=== PATIENT | female | born 1935 | race Caucasian/White ===

== ENCOUNTER → 2017-03-23 | Outpatient (CLI) | payer MEDICARE, OTHER ==
[2015-02-18 16:24] VITALS: BP 148/108
[~2017-03-23] MED LIST: ACET1TAB30 PO; AMLO5TAB4 PO; AMOX500C PO; APIX2.5T PO; ASPI-630 PO; CHOL2000 PO; LEVO75TA PO; MAGN400C PO; METO25TA4 PO; NAPR220C4 PO
[2017-03-23 07:09] LABS: CALCIUM 8.6 mg/dL (8.5-10.1); CREATININE 0.8 mg/dL (0.6-1.0); GFR 68.3; POTASSIUM 3.9 mmol/L (3.5-5.1)
[2017-03-23 07:13] LABS: BASO # 0.1 x10^3/uL (0.0-0.2); BASO % 1 % (0-3); EOS # 0.2 x10^3/uL (0.0-0.7); EOS % 3 % (0-3); HEMATOCRIT 43.8 % (36.0-47.0); HEMOGLOBIN 14.9 g/dL (12.0-15.5); LYMPH # 1.7 x10^3/uL (1.0-4.8); LYMPH % 26 % (24-48); MEAN CORPUSCULAR HEMOGLOBIN 31 pg (25-35); MEAN CORPUSCULAR HGB CONC 34 g/dL (31-37); MEAN CORPUSCULAR VOLUME 90 fL (79-100); MONO # 0.5 x10^3/uL (0.0-1.1); MONO % 8 % (0-9); NEUT % 63 % (31-73); PLATELET COUNT 240 x10^3/uL (140-400); RED BLOOD COUNT 4.89 x10^6/uL (3.50-5.40); RED CELL DISTRIBUTION WIDTH 14.1 % (11.5-14.5); WHITE BLOOD COUNT 6.4 x10^3/uL (4.0-11.0)
== END | disposition home or self-care (01) ==
LOC: SPEC 06:43
PROVIDERS: ATTEND Internal Medicine Cardiovascular Disease
DX: I48.0 Paroxysmal atrial fibrillation (principal); Z87.891 Personal history of nicotine dependence
CPT/HCPCS: 36415; 80048; 84443; 85025

== ENCOUNTER → 2017-03-23 | Outpatient (CLI) | payer MEDICARE, OTHER ==
[2015-02-18 16:24] VITALS: BP 148/108
--- NOTE | 2017-03-23 16:09 | CARD ---
APPROVED REPORT EXAM: Two-dimensional and M-mode echocardiogram with Doppler and color Doppler. Other Information Quality : Average Rhythm : Atrial Fibrillation INDICATION Atrial Fibrillation 2D DIMENSIONS RVDd2.8 (2.9-3.5cm)Left Atrium(2D)3.8 (1.6-4.0cm) IVSd1.0 (0.7-1.1cm)Aortic Root(2D)3.2 (2.0-3.7cm) LVDd3.7 (3.9-5.9cm)LVOT Diameter2.0 (1.8-2.4cm) PWd1.0 (0.7-1.1cm)LVDs2.8 (2.5-4.0cm) FS (%) 22.8 %SV26.6 ml LVEF(%)46.6 (>50%) Aortic Valve AoV Peak King.100.0cm/sAoV VTI18.4cm AO Peak GR.4.0mmHgAO Mean GR.2mmHg Mitral Valve MV E Snfrhxmj15.3cm/sMV E Peak Gr.3mmHg MV DECEL [id number] A Velocity2.8cm/s MV E Mean Gr.2mmHgMV FEB73hx E/A Ratio33.0MVA (PHT)4.84cm2 Tricuspid Valve TR P. Rlivbauz722wb/sRAP [id number] TR Peak Gr.53btOsJWQG51deEe LEFT VENTRICLE The left ventricle is normal size. There is normal left ventricular wall thickness. Left ventricle sy stolic function is low normal. EF 50% Septal motion consistent with conduction abnormality, otherwise grossly normal wall motion. Tissue Doppler imaging reveals moderate left ventricular diastolic dysfu nction. RIGHT VENTRICLE The right ventricle is normal size. The right ventricular systolic function is normal. ATRIA The left atrium is mildly dilated. The right atrium is moderately dilated. The interatrial septum is intact with no evidence for an atrial septal defect or patent foramen ovale as noted on 2-D or Dopple r imaging. AORTIC VALVE The aortic valve is mildly calcified. The aortic valve is trileaflet. Doppler and Color Flow revealed trace to mild aortic regurgitation. There is no significant aortic valvular stenosis. MITRAL VALVE The mitral valve is normal in structure. There is no mitral valve stenosis. Doppler and Color Flow re vealed mild mitral regurgitation. TRICUSPID VALVE The tricuspid valve is normal in structure. Doppler and Color Flow revealed moderate tricuspid regurg itation. The PA pressure was estimated at 43 mmHg. There is no tricuspid valve stenosis. PULMONIC VALVE The pulmonic valve is not well visualized. Doppler and Color Flow revealed no pulmonic valvular regur gitation. There is no pulmonic valvular stenosis. GREAT VESSELS The aortic root is normal in size. Pulmonary veins not recorded. The IVC collapses <50% with inspirat ion and is dilated in size consistent with elevated right sided filling pressures. PERICARDIAL EFFUSION There is no evidence of significant pericardial effusion. Critical Notification Critical Value: No <Conclusion> Left ventricle systolic function is low normal. EF 50% Septal motion consistent with conduction abnormality, otherwise grossly normal wall motion. Doppler and Color Flow revealed moderate tricuspid regurgitation. The PA pressure was estimated at 43 mmHg. The IVC collapses <50% with inspiration and is dilated in size consistent with elevated right sided f illing pressures.
== END | disposition home or self-care (01) ==
LOC: ECHO 12:58
PROVIDERS: ATTEND Internal Medicine Cardiovascular Disease
DX: I08.1 Rheumatic disorders of both mitral and tricuspid valves (principal); I70.0 Atherosclerosis of aorta; Z87.891 Personal history of nicotine dependence
CPT/HCPCS: 93306

== ENCOUNTER → 2017-04-28 | Outpatient (CLI) | payer MEDICARE, OTHER ==
[2015-02-18 16:24] VITALS: BP 148/108
== END | disposition home or self-care (01) ==
LOC: SPEC 09:36
PROVIDERS: ATTEND Specialist
DX: E03.9 Hypothyroidism, unspecified (principal); Z87.890 Personal history of sex reassignment; Z72.89 Other problems related to lifestyle
CPT/HCPCS: 84443

== ENCOUNTER → 2017-06-21 | Outpatient (CLI) | payer MEDICARE, OTHER ==
[2015-02-18 16:24] VITALS: BP 148/108
[2017-06-21 08:18] LABS: ALBUMIN 3.5 g/dL (3.4-5.0); ALBUMIN/GLOBULIN RATIO 1.2 (1.0-1.7); CALCIUM 8.8 mg/dL (8.5-10.1); CREATININE 0.8 mg/dL (0.6-1.0); GFR 68.3; TOTAL BILIRUBIN 0.7 mg/dL (0.2-1.0); TOTAL PROTEIN 6.4 g/dL (6.4-8.2)
[2017-06-21 14:27] LABS: THYROID STIM HORMONE (TSH) 1.26 uIU/mL (0.358-3.740)
== END | disposition home or self-care (01) ==
LOC: SPEC 07:25
PROVIDERS: ATTEND Specialist
DX: E03.9 Hypothyroidism, unspecified (principal); E63.9 Nutritional deficiency, unspecified; I10 Essential (primary) hypertension; Z87.891 Personal history of nicotine dependence
CPT/HCPCS: 36415; 80053; 80061; 84443

== ENCOUNTER → 2019-04-12 | Outpatient (CLI) | payer MEDICARE, OTHER ==
[2015-02-18 16:24] VITALS: BP 148/108
--- NOTE | 2019-04-12 14:58 | RAD ---
EXAM: Dual energy x-ray absorptiometry (DEXA). HISTORY: Postmenopausal female presents for osteoporosis screening. COMPARISON: 05/28/2016 and 01/03/2008. TECHNIQUE: Dual energy x-ray absorptiometry of the lumbar spine and right hip was performed. Calculation of bone mineral density based on standard deviations above or below the expected young adult normal value (T-score) was completed. FINDINGS: The average bone mineral density in the 1st through 4th lumbar vertebrae is 1.036 g/cmxcm, corresponding with a T-score of -1.2. There has been a 1.2% decrease in density of the lumbar spine compared to a study dated 01/03/2008. The average total bone mineral density in the right hip is 0.734 g/cmxcm, corresponding with a T-score of -1.8. There has been a 0.1% decrease in density of the left hip compared to a baseline study dated 01/03/2008. IMPRESSION: Osteopenia. Note: Definitions established by the World Health Organization: 1. Normal: T-score is -1.0 or above. 2. Osteopenia: T-score is between -1.0 and -2.5 . 3. Osteoporosis: T-score is -2.5 or below. Electronically signed by: Paola Barnes MD (04/12/2019 2:55 PM) [place] [id number]
== END | disposition home or self-care (01) ==
LOC: DXRAD 14:08
PROVIDERS: ATTEND Physician Assistant
DX: Z13.820 Encounter for screening for osteoporosis (principal); M85.88 Other specified disorders of bone density and structure, other site
CPT/HCPCS: 77080

== ENCOUNTER → 2020-09-03 | Outpatient (CLI) | payer MEDICARE, OTHER ==
[2015-02-18 16:24] VITALS: BP 148/108
--- NOTE | 2020-09-03 14:33 | CARD ---
MR#: [id number] Date of Study: 09/03/2020 Ordering Physician: RONDA ERAZO, Referring Physician: RONDA ERAZO, Tech: Kirti Rashid CHLOE APPROVED REPORT EXAM: Two-dimensional and M-mode echocardiogram with Doppler and color Doppler. Other Information Quality : Good Rhythm : Atrial Fibrillation INDICATION Hypertension/HCVD 2D DIMENSIONS RVDd3.6 (2.9-3.5cm)Left Atrium(2D)4.0 (1.6-4.0cm) IVSd0.7 (0.7-1.1cm)Aortic Root(2D)3.0 (2.0-3.7cm) LVDd3.3 (3.9-5.9cm)LVOT Diameter1.8 (1.8-2.4cm) PWd1.0 (0.7-1.1cm)LVDs1.5 (2.5-4.0cm) FS (%) 30.0 %SV39.3 ml LVEF(%)60.0 (>50%) Aortic Valve AoV Peak King.110.3cm/sAoV VTI16.6cm AO Peak GR.4.9mmHgLVOT Peak King.92.4cm/s LVOT VTI 15.63cmAO Mean GR.3mmHg PRIETO (VMAX)2.23eh5ZFV (VTI)2.52cm2 AI P 1/2 Drso037jk Tricuspid Valve TR P. Hlylrmmw918ai/sRAP VDNWTIRD1sdIf TR Peak Gr.04hlXsMRUC13ckXc LEFT VENTRICLE The left ventricle cavity is small. There is normal left ventricular wall thickness. The left ventric ular systolic function is normal. The Ejection Fraction is 55-60%. There is normal LV segmental wall motion. RIGHT VENTRICLE The right ventricle is mildly dilated. The right ventricular systolic function is normal. ATRIA The left atrium is mildly dilated. The right atrium is severely dilated. The interatrial septum is in tact with no evidence for an atrial septal defect or patent foramen ovale as noted on 2-D or Doppler imaging. AORTIC VALVE The aortic valve is calcified but opens well. Doppler and Color Flow revealed mild aortic regurgitati on. There is no significant aortic valvular stenosis. MITRAL VALVE The mitral valve is calcified but opens well. Mitral annular calcification is mild. There is no evide nce of mitral valve prolapse. There is no mitral valve stenosis. Doppler and Color-flow revealed mild mitral regurgitation. TRICUSPID VALVE The tricuspid valve is normal in structure and function. Doppler and Color Flow revealed mild tricusp id regurgitation. There is moderate pulmonary hypertension. The PA pressure was estimated at 47 mmHg. There is no tricuspid valve stenosis. PULMONIC VALVE The pulmonary valve is normal in structure and function. Doppler and Color Flow revealed mild to mode rate pulmonic valvular regurgitation. There is no pulmonic valvular stenosis. GREAT VESSELS The aortic root is normal in size. The ascending aorta is mildly dilated. The IVC is dilated and ammy apses >50% with inspiration. PERICARDIAL EFFUSION There is no evidence of significant pericardial effusion. Critical Notification Critical Value: No <Conclusion> The left ventricular systolic function is normal. The Ejection Fraction is 55-60%. There is normal LV segmental wall motion. Mild aortic regurgitation. Mild mitral regurgitation. Mild tricuspid regurgitation. The PA pressure was estimated at 47 mmHg. There is no evidence of significant pericardial effusion. Signed by : Rojelio Duran, Electronically Approved : 09/03/2020 14:32:44
== END ==
LOC: ECHO 13:06
PROVIDERS: ATTEND Internal Medicine Cardiovascular Disease
DX: I08.8 Other rheumatic multiple valve diseases (principal); I27.20 Pulmonary hypertension, unspecified; I10 Essential (primary) hypertension
CPT/HCPCS: 93306

== ENCOUNTER → 2021-03-13 | Outpatient (CLI) | payer MEDICARE, OTHER ==
[2015-02-18 16:24] VITALS: BP 148/108
--- NOTE | 2021-03-13 16:57 | RAD ---
Exam: US DPLX ARTR EXTREM LOWER BILAT History: Reason: PAD, NONPALPABLE PEDAL PULSES / Spl. Instructions: / History: Comparison: None. Technique: Grayscale, color, and spectral Doppler ultrasound images of the lower extremity arteries. Findings: There are no elevated peak systolic velocities. There are normal triphasic and biphasic wav eforms throughout both lower extremities. Impression: No significant peripheral arterial disease in the lower extremities. Electronically signed by: Elvira Bateman MD (03/13/2021 4:54 PM) [id number]
== END ==
LOC: US 11:01
PROVIDERS: ATTEND Podiatrist
DX: I73.9 Peripheral vascular disease, unspecified (principal); R09.89 Other specified symptoms and signs involving the circulatory and respiratory systems
CPT/HCPCS: 93925